=== PATIENT | female | born 1960 | race African-American/Black ===

== ENCOUNTER 2017-08-04 17:53 | Emergency (ER) | payer BC | END 2017-08-04 18:00 | disposition left against medical advice (07) | DRG 951 | LOC: ED 17:53 → LWOBS 18:00 | DX: Z91.19 Patient's noncompliance with other medical treatment and regimen (principal) ==

== ENCOUNTER 2021-11-03 11:14 | Emergency (ER) | payer OTHER ==
[~2021-11-03] VITALS: Ht 170.2 cm; Wt 92.7 kg
[2021-11-03 11:42] LABS: HEMATOCRIT 42.9 % (37.0-47.0); HEMOGLOBIN 14.4 g/dl (12.0-16.0); MEAN CELL VOLUME 87.4 fL CALC (80.0-100.0); MEAN CORPUSCULAR HGB 29.3 pG CALC (26.0-32.0); MEAN CORPUSCULAR HGB CONC 33.6 g/dL CAL (32.0-36.0); NEUT# 5.38 thou/uL (2.00-7.15); RED BLOOD COUNT 4.91 mill/uL (4.20-5.60)
[2021-11-03 12:04] LABS: ALBUMIN 4.4 g/dL (3.2-5.0); ALKALINE PHOSPHATASE 63 u/l (38-126); ANION GAP 11 (6-22 (CALC)); BILIRUBIN, TOTAL 0.4 mg/dL (0.0-1.4); BUN 12 mg/dL (8-23); BUN/CREATININE RATIO 16 (12-20 (CALC)); CARBON DIOXIDE 33 mmol/l (22-30); CHLORIDE 100 mmol/l (95-108); CREATININE 0.8 mg/dL (0.5-1.0); GFR > 60 ML/MIN (>=60 (CALC)); GFR FOR AFR.AMER. > 60 ML/MIN (>=60 (CALC)); LIPASE 90 u/l (23-300); POTASSIUM 3.8 mmol/l (3.5-5.1); SGOT/AST 31 u/l (9-36); SODIUM 140 mmol/l (137-146); TOTAL PROTEIN 8.3 g/dL (6.3-8.2)
[2021-11-03 12:07] LABS: ACT PARTIAL THROMBO TIME 24.5 SECONDS (20.0-32.5); PROTHROMBIN TIME 10.4 SECONDS (9.0-12.5)
[2021-11-03] MEDS ORDERED: LISINOP/HCTZ1 TA1 PO (12:18)
[2021-11-03] MEDS ORDERED: PRAVASTATIN SOD20 MG PO (12:18)
[2021-11-03] MEDS ORDERED: METFORMIN500 M2 PO (12:19)
[2021-11-03] MEDS ORDERED: BUPROPION150 M3 PO (12:19)
[2021-11-03] MEDS ORDERED: STOOL SOFTENER100 M1 PO (12:20)
[2021-11-03] MEDS ORDERED: MULTIVITAMIN1 TA1 (12:20)
[2021-11-03] MEDS ORDERED: BACLOFEN10 MG PO (12:21)
[2021-11-03] MEDS ORDERED: CELEBREX200 M1 (12:21)
[2021-11-03 15:41] VITALS: BP 143/79
== END 2021-11-03 15:41 | disposition home or self-care (01) | DRG 313 ==
LOC: ED 11:14
DX: R07.9 Chest pain, unspecified (principal); I10 Essential (primary) hypertension; E11.9 Type 2 diabetes mellitus without complications; Z79.84 Long term (current) use of oral hypoglycemic drugs; Z82.49 Family history of ischemic heart disease and other diseases of the circulatory system; Z20.822 Contact with and (suspected) exposure to COVID-19

== ENCOUNTER 2021-11-07 15:49 | Emergency (ER) | payer OTHER ==
[~2021-11-07] VITALS: Ht 170.2 cm; Wt 90.0 kg
[~2021-11-07 15:49] MED LIST: BACLOFEN10 MG PO; BUPROPION150 M3 PO; CELEBREX200 M1; LISINOP/HCTZ1 TA1 PO; METFORMIN500 M2 PO; MULTIVITAMIN1 TA1; PRAVASTATIN SOD20 MG PO; STOOL SOFTENER100 M1 PO
[2021-11-07 16:40] LABS: HEMATOCRIT 41.8 % (37.0-47.0); HEMOGLOBIN 14.1 g/dl (12.0-16.0); IMMATURE GRANULOCYTES 0.1 % (0.0-5.0); MEAN CELL VOLUME 86.9 fL CALC (80.0-100.0); MEAN CORPUSCULAR HGB 29.3 pG CALC (26.0-32.0); MEAN CORPUSCULAR HGB CONC 33.7 g/dL CAL (32.0-36.0); NEUT# 5.46 thou/uL (2.00-7.15); RED BLOOD COUNT 4.81 mill/uL (4.20-5.60)
[2021-11-07 16:50] LABS: ALBUMIN 4.4 g/dL (3.2-5.0); ALKALINE PHOSPHATASE 68 u/l (38-126); AMYLASE 78 u/l (30-110); ANION GAP 11 (6-22 (CALC)); BILIRUBIN, TOTAL 0.5 mg/dL (0.0-1.4); BUN 12 mg/dL (8-23); BUN/CREATININE RATIO 14 (12-20 (CALC)); CARBON DIOXIDE 27 mmol/l (22-30); CHLORIDE 100 mmol/l (95-108); CREATININE 0.9 mg/dL (0.5-1.0); GFR > 60 ML/MIN (>=60 (CALC)); GFR FOR AFR.AMER. > 60 ML/MIN (>=60 (CALC)); LIPASE 58 u/l (23-300); POTASSIUM 3.9 mmol/l (3.5-5.1); SGOT/AST 29 u/l (9-36); SODIUM 135 mmol/l (137-146); TOTAL PROTEIN 8.1 g/dL (6.3-8.2)
[2021-11-07 17:01] LABS: MYOGLOBIN 37 ng/mL (0 - 62)
[2021-11-07 18:41] LABS: URINE BILIRUBIN - DIPSTICK NEGATIVE (NEGATIVE); URINE BLOOD DIPSTICK NEGATIVE (NEGATIVE); URINE COLOR YELLOW; URINE GLUCOSE - DIPSTICK NEGATIVE (NEGATIVE); URINE KETONE NEGATIVE (NEGATIVE); URINE PROTEIN - DIPSTICK NEGATIVE (NEG-TRACE); URINE SPECIFIC GRAVITY 1.025
[2021-11-07 18:46] LABS: URINE LEUK ESTERASE MODERATE (NEGATIVE); URINE NITRITE - DIPSTICK NEGATIVE (Negative)
[2021-11-07 18:55] LABS: URINE SQUAMOUS EPITHELIAL CELL FEW EPI/hpf (0-FEW)
[2021-11-07] MEDS ORDERED: KEFLEX500 MG PO (19:09)
[2021-11-07 20:31] VITALS: BP 124/77
== END 2021-11-07 20:40 | disposition home or self-care (01) | DRG 69 ==
LOC: ED 15:49
PROVIDERS: Emergency Medicine
DX: G45.9 Transient cerebral ischemic attack, unspecified (principal); N39.0 Urinary tract infection, site not specified; I10 Essential (primary) hypertension; E11.9 Type 2 diabetes mellitus without complications; B95.4 Other streptococcus as the cause of diseases classified elsewhere; Z86.73 Personal history of transient ischemic attack (TIA), and cerebral infarction without residual deficits; Z79.84 Long term (current) use of oral hypoglycemic drugs
CPT/HCPCS: Q9967

== ENCOUNTER 2023-02-04 08:16 | Day surgery (SDC) | payer OTHER ==
[~2023-02-04] VITALS: Ht 170.2 cm; Wt 81.2 kg
[~2023-02-04 08:16] MED LIST changes: +CITALOPRAM10 M1 PO; +KEFLEX500 MG PO; +METRONIDAZOLE500 MG PO; +MIRALAX17 GM/SCOO
[2023-02-04 09:51] VITALS: BP 107/82
== END 2023-02-04 10:05 | disposition home or self-care (01) | DRG 951 ==
LOC: ENDO 08:16 → ORM 08:45 → ENDO 08:45
PROVIDERS: ATTEND Surgery
PROC: 0DJD8ZZ Inspection of Lower Intestinal Tract, Via Natural or Artificial Opening Endoscopic (ICD-10-PCS; principal; 2023-02-04)
DX: Z12.11 Encounter for screening for malignant neoplasm of colon (principal); K64.8 Other hemorrhoids; I10 Essential (primary) hypertension; E11.9 Type 2 diabetes mellitus without complications; E78.5 Hyperlipidemia, unspecified; F41.9 Anxiety disorder, unspecified; Z86.010 Personal history of colon polyps; Z86.73 Personal history of transient ischemic attack (TIA), and cerebral infarction without residual deficits; Z79.84 Long term (current) use of oral hypoglycemic drugs

== ENCOUNTER 2024-10-16 15:49 | Observation (INO) | payer OTHER ==
[~2024-10-16] VITALS: Ht 170.2 cm; Wt 85.0 kg
--- NOTE | 2024-10-16 15:50 | NUR ---
PT TO ER ROOM 1 WITH STEADY GAIT.
[2024-10-16] MEDS ORDERED: ASPIRIN 81 MG/TAB PO ONE (15:55)
[2024-10-16 16:26] LABS: BASO% 0.4 % (0-3); EOS% 0.6 % (0-8); HEMATOCRIT 37.7 % (37.0-47.0); IMMATURE GRANULOCYTES 0.4 % (0.0-5.0); LYMPH% 43.6 % (15-41); MEAN CELL VOLUME 85.9 fL CALC (80.0-100.0); MEAN CORPUSCULAR HGB 29.6 pG CALC (26.0-32.0); MEAN CORPUSCULAR HGB CONC 34.5 g/dL CAL (32.0-36.0); MONO% 10.6 % (2-13); NEUT# 3.79 thou/uL (2.00-7.15); NEUT% 44.4 % (42-76); RED BLOOD COUNT 4.39 mill/uL (4.20-5.60); RED CELL DISTRI WIDTH 13.4 % (11.5-15.5)
[2024-10-16 16:41] LABS: ALBUMIN 4.3 g/dL (3.2-5.0); ALKALINE PHOSPHATASE 52 u/l (38-126); ANION GAP 10 (6-22 (CALC)); BILIRUBIN, TOTAL 0.5 mg/dL (0.02-1.3); BUN 13 mg/dL (8-23); BUN/CREATININE RATIO 18 (12-20 (CALC)); CARBON DIOXIDE 30 mmol/l (22-30); CHLORIDE 102 mmol/l (95-108); CREATININE 0.7 mg/dL (0.5-1.0); ESTIMATED GFR 97 ML/MIN (>=90 (CALC)); POTASSIUM 3.7 mmol/l (3.5-5.1); SGOT/AST 35 u/l (9-36); SODIUM 138 mmol/l (137-146); TOTAL PROTEIN 7.4 g/dL (6.3-8.2)
--- NOTE | 2024-10-16 17:12 | NUR ---
PT RESTING, NO NEEDS AT THIS TIME.
--- NOTE | 2024-10-16 18:58 | NUR ---
REPORT RECEIVED FROM CHING WORKMAN AND CARE RESUMED BY THIS NURSE AT THIS TIME. CALL LIGHT WITHIN REACH AND PT AWAITING ADMISSION TO MED SURG.
--- NOTE | 2024-10-16 19:55 | NUR ---
PT SITTING IN RM AWAITING ADMIT AT THIS TIME. CALL LIGHT WITHIN REACH AND PT HAS NO NEEDS OR CONCERNS AT THIS TIME.
--- NOTE | 2024-10-16 20:45 | NUR ---
PT OUT OF ROOM STATING SHE IS HAVING CP AGAIN VITALS TAKEN AND ALL NORMAL. CM READING AT SR 80 WITH NO CHANGES. PT BACK IN RM AND IN BED CALMING EXERCISES PERFORMED WITH THE PT AND SHE WAS UPDATED ON RM STATUS. CALL LIGHT WITHIN REACH AND PT AWAITING TRANSPORT TO MED SURG.
[2024-10-16] MEDS ORDERED: metFORMIN HYDROCHLORIDE 500 MG/TAB PO SCH (21:00)
[2024-10-16] MEDS ORDERED: ATORVASTATIN CALCIUM 40 MG/TAB PO SCH (21:00)
--- NOTE | 2024-10-16 21:10 | NUR ---
Admission Note Report Given to: CHING HEREDIA Transported by: X Wheelchair Stretcher Transported with: X Nurse Transporter X Patent IV O2 X Wood Machinist Location: ICU X [facility]
[2024-10-16 21:27] VITALS: BP 136/82
--- NOTE | 2024-10-16 23:43 | NUR ---
RECEIVED REPORT FROM NURSE DERRICK, PATIENT TRASNPORTED VIA WHEELCHAIR, PATIENT ARRIVED MS UNIT AT 2114, ACOMPANIED BY FRIEND, PATIENT DENIES PAIN AT THIS TIME. PATIENT ALERT ORIENTED, IV ON RAC PATENT FLSUHES WELL, GLUCOSE CHECK 90, PATIENT REQUESTING FOOD, PATIENT ON TELEMETRY # 9, LUNG SOUNDS CLEAR, REGULAR HEARTSOUNDS, ADMISSION ASSESSMENT COMPLETED, PATIENT ORIENTED TO ROOM AND CALL LIGHT SYSTEM.CALL LIGHT WITHIN REACHED.
[2024-10-17 01:16] VITALS: BP 100/50
--- NOTE | 2024-10-17 04:00 | NUR ---
PATIENT RESTING IN BED, EYES CLOSED, NO DISCOMFORTS NOTED AT THIS TIME. CALL LIGHT IN REACHED.
[2024-10-17 04:28] VITALS: BP 99/60
[2024-10-17 05:42] LABS: BASO% 0.4 % (0-3); HEMATOCRIT 36.3 % (37.0-47.0); HEMOGLOBIN 12.5 g/dl (12.0-16.0); IMMATURE GRANULOCYTES 0.1 % (0.0-5.0); LYMPH% 37.8 % (15-41); MEAN CELL VOLUME 86.4 fL CALC (80.0-100.0); MEAN CORPUSCULAR HGB 29.8 pG CALC (26.0-32.0); MEAN CORPUSCULAR HGB CONC 34.4 g/dL CAL (32.0-36.0); MONO% 8.1 % (2-13); NEUT# 4.17 thou/uL (2.00-7.15); NEUT% 52.6 % (42-76); RED BLOOD COUNT 4.2 mill/uL (4.20-5.60); RED CELL DISTRI WIDTH 13.4 % (11.5-15.5)
[2024-10-17 05:58] LABS: ALBUMIN 3.7 g/dL (3.2-5.0); BILIRUBIN, TOTAL 0.5 mg/dL (0.02-1.3); CREATININE 0.7 mg/dL (0.5-1.0); POTASSIUM 4.1 mmol/l (3.5-5.1); TOTAL PROTEIN 6.6 g/dL (6.3-8.2)
--- NOTE | 2024-10-17 07:49 | NUR ---
PT IS AOX4 SITTING UP IN THE BED, RESPIRATIONS ARE EVEN AND UNLABORED, LUNGS SOUND CLEAR, BOWEL SOUNDS ACTIVE, PEDAL PULSES PALPABLE TO TOUCH, PT REPORTS NO NEW PAIN IN CHEST STATES IT FEELS MORE LIKE "THE AFTER EFFECT OF THE PAIN, LIKE A BRUISE"
[2024-10-17 07:53] VITALS: BP 134/84
[2024-10-17] MEDS ORDERED: buPROPion HCL 150 MG TAB SR PO SCH (09:00)
[2024-10-17] MEDS ORDERED: LISINOPRIL 20 MG/TAB PO SCH (09:00)
[2024-10-17] MEDS ORDERED: ATORVASTATIN CALCIUM 40 MG/TAB PO SCH (10:00)
[2024-10-17] MEDS ORDERED: OMEPRAZOLE20 MG PO (11:38)
[2024-10-17 11:52] VITALS: BP 125/78
--- NOTE | 2024-10-17 13:10 | NUR ---
REVIEWED DISCHARGE INSTRUCTIONS WITH PT, REMOVED IV AND TELE BOX.
--- NOTE | 2024-10-17 13:11 | NUR ---
PT LEFT THE [facility]BIT VIA STAFF WHEELCHAIR TRANSPORT WITH BELONGINGS IN HAND.
--- NOTE | 2024-10-19 13:53 | NUR ---
Discharge follow up call completed 10/19/24. Patient states she is doing much better since discharge. Patient was not prescribed medication at discharge. Patient has a follow up appointment with her PCP on 10/21/24. No needs or concerns verbalized at this time.
== END 2024-10-17 13:06 | disposition home or self-care (01) ==
LOC: ED 15:49 → ED-I 18:40 → ED 18:52 → MS2 18:53
PROVIDERS: Family Medicine; ADMIT Internal Medicine; ATTEND Internal Medicine
DX: R07.9 Chest pain, unspecified (principal); I10 Essential (primary) hypertension; E11.9 Type 2 diabetes mellitus without complications; Z79.84 Long term (current) use of oral hypoglycemic drugs